=== PATIENT | male | born 1965 | race Caucasian/White ===

== ENCOUNTER 2019-01-15 14:03 | Emergency (ER) | payer OTHER ==
[~2019-01-15] VITALS: Ht 175.3 cm; Wt 97.5 kg
[2019-01-15] MEDS ORDERED: Ultram50 MG PO (16:24)
[2019-01-15] MEDS ORDERED: Mobic15 MG PO (16:24)
== END 2019-01-15 16:32 | disposition home or self-care (01) ==
LOC: ER 14:03
DX: M25.511 Pain in right shoulder (principal)
CPT/HCPCS: 73030; 76882; 99284-25